=== PATIENT | male | born 1960 | race Caucasian/White ===

== ENCOUNTER 2017-05-07 11:31 | Observation (INO) | payer BC, OTHER ==
[~2017-05-07] VITALS: Ht 177.8 cm; Wt 85.0 kg
[2017-05-07] VITALS (7 sets, daily range): BP systolic 119–178; BP diastolic 70–95; PULSE 70–96; RESP 16–18; TEMP 98.4–99; O2SAT 97–99
[2017-05-07] MEDS ORDERED: DIPHTH/TETANUS/ACEL PERTUSSIS (BOOSTER) 0.5 ML VIAL/PFS IM ONE (11:45)
[2017-05-07] MEDS ORDERED: SODIUM CHLORIDE 0.9% FLUSH 10 ML FLUSH IV FLUSH PRN ×2 (11:45→19:00)
[2017-05-07] MEDS ORDERED: TRAM50TA PO (11:47)
[2017-05-07] MEDS ORDERED: IBUP800T23 PO (11:47)
[2017-05-07 12:13] LABS: AUTOMATED NEUTROPHIL # 9.4 TH/MM3 (1.8-7.7); BASOPHIL # 0.1 TH/MM3 (0-0.2); BASOPHIL % 0.6 % (0.0-2.0); EOSINOPHIL # 0.3 TH/MM3 (0-0.4); EOSINOPHIL % 2.4 % (0.0-4.0); HEMATOCRIT 41.9 % (39.0-51.0); HEMO FLAGS DIFF FINAL; LYMPHOCYTE # 1.3 TH/MM3 (1.0-4.8); MEAN CELL VOLUME 89.3 FL (80.0-100.0); MEAN CORPUSCULAR HGB CONC 33.6 % (32.0-36.0); MONO % 6.6 % (0.0-8.0); NEUT % 79.4 % (16.0-70.0); PLATELET COUNT 288 TH/MM3 (150-450); RED BLOOD COUNT 4.69 MIL/MM3 (4.50-5.90); RED CELL DISTRIBUTION WIDTH 14.1 % (11.6-17.2); WHITE BLOOD COUNT 11.8 TH/MM3 (4.0-11.0)
--- NOTE | 2017-05-07 12:14 | RADRPT ---
EXAM DATE/TIME: 05/07/2017 11:50 [place] COMPARISON: No previous studies available for comparison. INDICATIONS : Pain in right hand, second digit distal. Foreign body. Snake bite today. MEDICAL HISTORY : None. SURGICAL HISTORY : None. ENCOUNTER: Initial ACUITY: 1 day PAIN SCORE: 8/10 LOCATION: Right hand FINDINGS: Three view examination of the right hand demonstrates no soft tissue swelling, dislocation, or fractu re. The carpal bones appear intact. The interphalangeal and metacarpophalangeal joints are intact. Bony mineralization is normal. CONCLUSION: 1. No retained foreign body identified. Samy Dowling MD on May 07, 2017 at 12:11 Board Certified Radiologist. This report was verified electronically.
--- NOTE | 2017-05-07 12:19 | PD ---
HPI Chief Complaint: Bite or Sting Time Seen by Provider: 11:37 Travel History International Travel<30 days: No Contact w/Intl Traveler<30days: No Traveled to known affect area: No History of Present Illness HPI Patient is a 57-year-old male presents emergency department after an apparent snake bite to the right index finger. Patient states he was gardening and by time he saw the snake it was too late and it bit him. Theron and states he has seen pygme rattler snakes in his garden before and he is fairly certain this was one. He states it had a farzana head. He has never received antivenom before. Denies CP/Denies SOP/Denies bleeding from mouth, rectum or skin. Patient states that initially he squeezed the finger but did not suck or apply tourniquet. He does not take any anticoagulants. He states he takes Ultram for chronic back pain and occasional ibuprofen. PFSH Social History Alcohol Use: Yes (OCC) Tobacco Use: No Substance Use: No Allergies-Medications (Allergen,Severity, Reaction): Coded Allergies: azithromycin (Unverified Allergy, Severe, 05/07/17) erythromycin base (Unverified Allergy, Severe, 05/07/17) Reported Meds & Prescriptions Reported Meds & Active Scripts Active Reported Levothyroxine (Levothyroxine Sodium) 25 Mcg Tab 25 Mcg PO DAILY Ibuprofen 800 Mg Tab 800 Mg PO Q6HR PRN Tramadol (Tramadol HCl) 50 Mg Tab 100 Mg PO Q6H PRN Review of Systems Except as stated in HPI: all other systems reviewed are Neg Physical Exam Narrative GENERAL: Well-developed well-nourished no obvious distress. SKIN: There is a 1 cm x 0.5 cm hemorrhagic blister on the radial aspect of the right index finger at the DIP joint. There is also some mild swelling of this digit when compared to his other digit. There is some minimal surrounding erythema to approximately dime-sized. Some minimal range of motion limitation secondary to swelling. The patient reports minimal amount of pain at the site of the bite. There is a small puncture wound and only one puncture wound is seen. There is also some minimal swelling associated with an IV started in his left hand. He had an IV started in his right hand by EMS which was removed after additional IVs were obtained.. HEAD: Atraumatic. Normocephalic. EYES: Pupils equal and round. No scleral icterus. No injection or drainage. ENT: No nasal bleeding or discharge. Mucous membranes pink and moist. NECK: Trachea midline. No JVD. CARDIOVASCULAR: Regular rate and rhythm. No murmur appreciated. RESPIRATORY: No accessory muscle use. Clear to auscultation. Breath sounds equal bilaterally. GASTROINTESTINAL: Abdomen soft, non-tender, nondistended. Hepatic and splenic margins not palpable. MUSCULOSKELETAL: No obvious deformities. No clubbing. No cyanosis. No edema. NEUROLOGICAL: Awake and alert. Cranial nerves II through XII are grossly intact and nonfocal, 5 out of 5 strength in all 4 extremities. PSYCHIATRIC: Appropriate mood and affect; insight and judgment normal. Data Data Last Documented VS Vital Signs Date Time Temp Pulse Resp B/P (MAP) Pulse Ox O2 Delivery O2 Flow Rate FiO2 05/07/17 16:00 76 18 119/70 (86) 98 Room Air 05/07/17 11:32 98.4 Orders Orders Ecg Monitoring (05/07/17 11:42) Iv Access Insert/Monitor (05/07/17 11:42) Complete Blood Count With Diff (05/07/17 11:42) Basic Metabolic Panel (Bmp) (05/07/17 11:42) Prothrombin Time / Inr (Pt) (05/07/17 11:42) Act Partial Throm Time (Ptt) (05/07/17 11:42) Fibrinogen (05/07/17 11:42) Creatine Kinase (Cpk) (05/07/17 11:42) Type And Screen (05/07/17 11:42) [id number] (Booster) Inj (Boostrix (05/07/17 11:45) Sodium Chloride 0.9% Flush (Ns Flush) (05/07/17 11:45) Hepatic Functional Panel (05/07/17 11:44) Hand, Complete ([id number]) (05/07/17 ) Complete Blood Count With Diff (05/07/17 14:21) Comprehensive Metabolic Panel (05/07/17 14:21) Act Partial Throm Time (Ptt) (05/07/17 14:21) Prothrombin Time / Inr (Pt) (05/07/17 14:21) Fibrinogen (05/07/17 14:21) Tramadol (Ultram) (05/07/17 15:00) Complete Blood Count With Diff (05/07/17 17:21) Comprehensive Metabolic Panel (05/07/17 17:21) Act Partial Throm Time (Ptt) (05/07/17 17:21) Prothrombin Time / Inr (Pt) (05/07/17 17:21) Fibrinogen (05/07/17 17:21) Diet As Tolerated (05/07/17 18:27) Admit Order (Ed Use Only) (05/07/17 ) Labs Laboratory Tests Test 05/07/17 11:50 05/07/17 14:30 05/07/17 17:30 White Blood Count 11.8 TH/MM3 10.1 TH/MM3 10.4 TH/MM3 Red Blood Count 4.69 MIL/MM3 4.47 MIL/MM3 4.34 MIL/MM3 Hemoglobin 14.1 GM/DL 13.2 GM/DL 13.1 GM/DL Hematocrit 41.9 % 39.8 % 38.9 % Mean Corpuscular Volume 89.3 FL 89.2 FL 89.6 FL Mean Corpuscular Hemoglobin 30.0 PG 29.6 PG 30.1 PG Mean Corpuscular Hemoglobin Concent 33.6 % 33.2 % 33.6 % Red Cell Distribution Width 14.1 % 13.7 % 13.9 % Platelet Count 288 TH/MM3 291 TH/MM3 289 TH/MM3 Mean Platelet Volume 8.0 FL 8.0 FL 8.0 FL Neutrophils (%) (Auto) 79.4 % 79.7 % 79.2 % Lymphocytes (%) (Auto) 11.0 % 11.7 % 10.7 % Monocytes (%) (Auto) 6.6 % 5.6 % 6.7 % Eosinophils (%) (Auto) 2.4 % 2.0 % 2.7 % Basophils (%) (Auto) 0.6 % 1.0 % 0.7 % Neutrophils # (Auto) 9.4 TH/MM3 8.1 TH/MM3 8.2 TH/MM3 Lymphocytes # (Auto) 1.3 TH/MM3 1.2 TH/MM3 1.1 TH/MM3 Monocytes # (Auto) 0.8 TH/MM3 0.6 TH/MM3 0.7 TH/MM3 Eosinophils # (Auto) 0.3 TH/MM3 0.2 TH/MM3 0.3 TH/MM3 Basophils # (Auto) 0.1 TH/MM3 0.1 TH/MM3 0.1 TH/MM3 CBC Comment DIFF FINAL DIFF FINAL DIFF FINAL Differential Comment Prothrombin Time 10.6 SEC 10.8 SEC 10.9 SEC Prothromb Time International Ratio 1.0 RATIO 1.0 RATIO 1.0 RATIO Activated Partial Thromboplast Time 29.8 SEC 30.3 SEC 28.4 SEC Fibrinogen 551 mg/dL 500 mg/dL 531 mg/dL Blood Urea Nitrogen 11 MG/DL 11 MG/DL 11 MG/DL Creatinine 0.91 MG/DL 0.80 MG/DL 0.77 MG/DL Random Glucose 88 MG/DL 97 MG/DL 93 MG/DL Calcium Level 8.7 MG/DL 8.4 MG/DL 8.5 MG/DL Sodium Level 137 MEQ/L 137 MEQ/L 135 MEQ/L Potassium Level 3.9 MEQ/L 4.1 MEQ/L 4.0 MEQ/L Chloride Level 103 MEQ/L 104 MEQ/L 103 MEQ/L Carbon Dioxide Level 26.7 MEQ/L 26.3 MEQ/L 26.2 MEQ/L Anion Gap 7 MEQ/L 7 MEQ/L 6 MEQ/L Estimat Glomerular Filtration Rate 85 ML/MIN 99 ML/MIN 103 ML/MIN Total Bilirubin 0.5 MG/DL 0.5 MG/DL 0.5 MG/DL Direct Bilirubin 0.1 MG/DL Indirect Bilirubin 0.4 MG/DL Aspartate Amino Transf (AST/SGOT) 16 U/L 18 U/L 14 U/L Alanine Aminotransferase (ALT/SGPT) 18 U/L 14 U/L 14 U/L Alkaline Phosphatase 99 U/L 91 U/L 93 U/L Total Creatine Kinase 47 U/L Total Protein 8.0 GM/DL 7.3 GM/DL 7.4 GM/DL Albumin 3.3 GM/DL 3.1 GM/DL 3.0 GM/DL [facility] Medical Decision Making Medical Screen Exam Complete: Yes Emergency Medical Condition: Yes Differential Diagnosis Rattlesnake bite, dry bite, DIC, cellulitis, nonvenomous snake bite. Narrative Course Patient roomed in the emergency department, initially discussed with poison control, recommended serial measurements basic labs. When his labs resulted at 1320 was discussed again with poison control and discussed with Dr. Lopez who states that she is the toxicology fellow on. Discussed that the hand measurements have progressed as below. She recommends continued observation and repeat labs at 3 hours after the initial lab set. No antibiotic and has been recommended as of yet. Measurements were checked every 15-30 minutes as instructed by poison control, selected measurements are demonstrated below. Measurements (diameters): Middle Phalynx 7.5cm (12:15)-> 7.5cm (13:15)-> 8.0cm (14:15)-> 7.5cm (17 :15) Hand 22cm (12:15)-> 23cm (13:15)-> 22.5cm (14:15)-> 22.5cm (17:15) Wrist: 20cm (12:15)-> 20.5cm (13:15)-> 20cm (14:15)-> 20cm (17:15) Patient was discussed repeatedly with poison control and fellow on-call. At her final conversation at 1730 she had recommended that the patient has any swelling that he be admitted to the hospital for every 6 hours labs to assure the patient does not go into DIC. At this point my assessment is that the patient does still have some minimal swelling. The swelling has not progressed in the hemorrhagic blister has not progressed either. The recommendations were discussed with the patient and he is agreeable. Critical Care Narrative Aggregate critical care time was 65 minutes. Patient had frequent reassessments by me in the er to remeasure swelling. Multiple discussions with specialty provider at the poison control center. Time to perform other separately billable procedures was not included in the critical care time. My time did not include minutes spent treating any other patients simultaneously or on activities that did not directly contribute to the patient's treatment. The services I provided to this patient were to treat and/or prevent clinically significant deterioration that could result in: , disability, organ failure, amputation. I provided critical care services requiring my management, as noted below: Chart data review, documentation time, medication orders and management, vital sign assessments/reviewing monitor data, ordering and reviewing lab tests, ordering and interpreting/reviewing x-rays and diagnostic studies, care of the patient and discussion of the patient with the admitting physicians. Diagnosis Primary Impression: Snake bite Additional Impression: Venomous snake bite Admitting Information Admitting Physician Requests: Observation Condition: Stable Aayush Alvarado MD May 07, 2017 12:19
[2017-05-07 12:26] LABS: APTT (PATIENT) 29.8 SEC (24.3-30.1); PROTHROMBIN TIME - PATIENT 10.6 SEC (9.8-11.6)
[2017-05-07 12:34] LABS: BICARBONATE 26.7 MEQ/L (21.0-32.0); POTASSIUM 3.9 MEQ/L (3.5-5.1)
[2017-05-07 12:37] LABS: INDIRECT BILIRUBIN 0.4 MG/DL (0.0-0.8); TOTAL BILIRUBIN ADULT 0.5 MG/DL (0.2-1.0)
[2017-05-07 14:49] LABS: AUTOMATED NEUTROPHIL # 8.1 TH/MM3 (1.8-7.7); BASOPHIL # 0.1 TH/MM3 (0-0.2); EOSINOPHIL # 0.2 TH/MM3 (0-0.4); HEMATOCRIT 39.8 % (39.0-51.0); HEMO FLAGS DIFF FINAL; LYMPH % 11.7 % (9.0-44.0); LYMPHOCYTE # 1.2 TH/MM3 (1.0-4.8); MEAN CELL VOLUME 89.2 FL (80.0-100.0); MEAN CORPUSCULAR HEMOGLOBIN 29.6 PG (27.0-34.0); MEAN CORPUSCULAR HGB CONC 33.2 % (32.0-36.0); MONO % 5.6 % (0.0-8.0); NEUT % 79.7 % (16.0-70.0); PLATELET COUNT 291 TH/MM3 (150-450); RED BLOOD COUNT 4.47 MIL/MM3 (4.50-5.90); RED CELL DISTRIBUTION WIDTH 13.7 % (11.6-17.2); WHITE BLOOD COUNT 10.1 TH/MM3 (4.0-11.0)
[2017-05-07 14:58] LABS: ALT (GPT) 14 U/L (12-78); ANION GAP 7 MEQ/L (5-15); AST (GOT) 18 U/L (15-37); BICARBONATE 26.3 MEQ/L (21.0-32.0); BLOOD UREA NITROGEN 11 MG/DL (7-18); CHLORIDE 104 MEQ/L (98-107); GLOMERULAR FILTRATION RATE 99 ML/MIN (>89); POTASSIUM 4.1 MEQ/L (3.5-5.1); SODIUM (NA) 137 MEQ/L (136-145)
[2017-05-07 15:00] LABS: ALKALINE PHOSPHATASE 91 U/L (45-117); TOTAL BILIRUBIN ADULT 0.5 MG/DL (0.2-1.0)
[2017-05-07] MEDS ORDERED: traMADol HCL 50 MG TAB PO ONE (15:00)
[2017-05-07 15:19] LABS: APTT (PATIENT) 30.3 SEC (24.3-30.1); PROTHROMBIN TIME - PATIENT 10.8 SEC (9.8-11.6)
[2017-05-07 17:57] LABS: AUTOMATED NEUTROPHIL # 8.2 TH/MM3 (1.8-7.7); BASOPHIL # 0.1 TH/MM3 (0-0.2); BASOPHIL % 0.7 % (0.0-2.0); EOSINOPHIL # 0.3 TH/MM3 (0-0.4); EOSINOPHIL % 2.7 % (0.0-4.0); HEMATOCRIT 38.9 % (39.0-51.0); HEMO FLAGS DIFF FINAL; LYMPH % 10.7 % (9.0-44.0); LYMPHOCYTE # 1.1 TH/MM3 (1.0-4.8); MEAN CELL VOLUME 89.6 FL (80.0-100.0); MEAN CORPUSCULAR HEMOGLOBIN 30.1 PG (27.0-34.0); MEAN CORPUSCULAR HGB CONC 33.6 % (32.0-36.0); MONO % 6.7 % (0.0-8.0); NEUT % 79.2 % (16.0-70.0); PLATELET COUNT 289 TH/MM3 (150-450); RED BLOOD COUNT 4.34 MIL/MM3 (4.50-5.90); RED CELL DISTRIBUTION WIDTH 13.9 % (11.6-17.2); WHITE BLOOD COUNT 10.4 TH/MM3 (4.0-11.0)
[2017-05-07 18:13] LABS: ALT (GPT) 14 U/L (12-78); ANION GAP 6 MEQ/L (5-15); AST (GOT) 14 U/L (15-37); BICARBONATE 26.2 MEQ/L (21.0-32.0); BLOOD UREA NITROGEN 11 MG/DL (7-18); CHLORIDE 103 MEQ/L (98-107); GLOMERULAR FILTRATION RATE 103 ML/MIN (>89); SODIUM (NA) 135 MEQ/L (136-145)
[2017-05-07 18:15] LABS: ALKALINE PHOSPHATASE 93 U/L (45-117); TOTAL BILIRUBIN ADULT 0.5 MG/DL (0.2-1.0)
[2017-05-07 18:18] LABS: APTT (PATIENT) 28.4 SEC (24.3-30.1); PROTHROMBIN TIME - PATIENT 10.9 SEC (9.8-11.6)
[2017-05-07] MEDS ORDERED: MAGNESIUM HYDROXIDE SUSP 30 ML CUP PO PRN (19:00)
[2017-05-07] MEDS ORDERED: LACTULOSE SYRUP 20 GM/30 ML CUP PO PRN (19:00)
[2017-05-07] MEDS ORDERED: NALOXONE HCL 0.4 MG/ML AMP IV PUSH PRN (19:00)
[2017-05-07] MEDS ORDERED: BISACODYL 10 MG SUPP RECTAL PRN (19:00)
[2017-05-07] MEDS ORDERED: ONDANSETRON HCL 4 MG/2 ML VIAL IVP PRN (19:00)
[2017-05-07] MEDS ORDERED: SENNOSIDES 8.6 MG TAB PO PRN (19:00)
--- NOTE | 2017-05-07 19:16 | HHI.HP ---
[facility] Service Family Medicine Primary Care Physician Peace Serrano M.D. Admission Diagnosis Venomous Snake Bite. Diagnoses: International Travel<30 Days: No Contact w/Intl Traveler<30days: No Known Affected Area: No History of Present Illness Patient is a 57-year-old male with a h/o chronic back pain and hypothyroid who presented to the emergency department after an apparent snake bite to the right index finger. Patient reports that he was at his hunting camp, out there cleaning up. There was a tree down, and they wanted to collect the wood for [employer]. He reached out to chart picker branches and was bitten by a snake. There was one puncture wound. He squeezed it. He did not suck or apply a tourniquet. He went back and killed the snake with a shovel, but he did not bring the snake. He said it looked exactly like a pygmy rattlesnake that he saw online. He showed a picture from online and noted the farzana-shaped head and black spots on a alford body. He went to fire department 15-20 min away. They sent him via ambulance to here. He reports that the one necrotic spot is very TTP. There was some numbness and tingling in tip of his right index finger soon after the bite, which quickly resolved. Denies CP/Denies SOP/Denies bleeding from mouth, rectum or skin. He does not take any anticoagulants. He states he takes Ultram for chronic back pain and occasional ibuprofen. (Shayne Amin MD R2) Review of Systems Constitutional: DENIES: Diaphoretic episodes, Fever, Chills Endocrine: DENIES: Polydipsia, Polyuria, Polyphagia Eyes: DENIES: Blurred vision, Diplopia, Vision loss, Double Vision Ears, nose, mouth, throat: DENIES: Hearing loss, Throat pain, Running Nose Respiratory: DENIES: Cough, Shortness of breath Cardiovascular: DENIES: Chest pain, Palpitations, Syncope, Dyspnea on Exertion , Lower Extremity Edema Gastrointestinal: DENIES: Abdominal pain, Black stools, Bloody stools, Constipation, Diarrhea, Nausea, Vomiting Genitourinary: DENIES: Hematuria, Dysuria Musculoskeletal: COMPLAINS OF: Back pain, DENIES: Joint pain, Muscle aches, Neck pain Integumentary: DENIES: Pruritus, Rash Hematologic/lymphatic: DENIES: Bruising, Lymphadenopathy Neurologic: DENIES: Headache, Localized weakness, Paresthesias Psychiatric: DENIES: Confusion (Shayne Amin MD R2) Past Family Social History Past Medical History hypothyroid chronic back pain Past Surgical History denied Reported Medications Reported Meds & Active Scripts Active Reported Levothyroxine (Levothyroxine Sodium) 25 Mcg Tab 25 Mcg PO DAILY Ibuprofen 800 Mg Tab 800 Mg PO Q6HR PRN Tramadol (Tramadol HCl) 50 Mg Tab 100 Mg PO Q6H PRN (Shayne Amin MD R2) Allergies: Coded Allergies: azithromycin (Unverified Allergy, Severe, 05/07/17) erythromycin base (Unverified Allergy, Severe, 05/07/17) Active Ordered Medications Current Medications Medications (Trade) Dose Ordered Sig/Sadia Route Start Time Stop Time Status Last Admin (NS Flush) 2 ml UNSCH PRN IV FLUSH 05/07/17 11:45 (NS Flush) 2 ml UNSCH PRN IV FLUSH 05/07/17 19:00 (NS Flush) 2 ml BID IV FLUSH 05/07/17 21:00 (Tylenol) 650 mg Q4H PRN PO 05/07/17 19:00 (Zofran Inj) 4 mg Q6H PRN IVP 05/07/17 19:00 (Narcan Inj) 0.4 mg UNSCH PRN IV PUSH 05/07/17 19:00 (Leila-Colace) 1 tab BID PO 05/07/17 21:00 (Milk Of Magnesia Liq) 30 ml Q12H PRN PO 05/07/17 19:00 (Senokot) 17.2 mg Q12H PRN PO 05/07/17 19:00 (Dulcolax Supp) 10 mg DAILY PRN RECTAL 05/07/17 19:00 (Lactulose Liq) 30 ml DAILY PRN PO 05/07/17 19:00 (Motrin) 800 mg Q6H PRN PO 05/07/17 19:30 (Ultram) 100 mg Q6H PRN PO 05/07/17 19:30 Family History hypothyroidism in mother (takes low dose levothyroxine) and sister (takes high dose levothyroxine) Social History Patient lives with in house in [place], [place]. He quit smoking 2 years ago. He smoked 1ppd for 20 years. He drinks alcohol rarely. (Shayne Amin MD R2) Physical Exam Vital Signs Vital Signs Date Time Temp Pulse Resp B/P (MAP) Pulse Ox O2 Delivery O2 Flow Rate FiO2 05/07/17 16:00 76 18 119/70 (86) 98 Room Air 05/07/17 15:00 70 16 124/72 (89) 98 Room Air 05/07/17 14:00 80 16 123/71 (88) 97 Room Air 05/07/17 13:00 86 16 152/76 (101) 99 Room Air 05/07/17 11:32 98.4 96 16 178/95 (122) 98 Physical Exam GENERAL: Well-developed well-nourished no obvious distress. SKIN: There is a 0.75 cm x 0.5 cm dark blood blister on the radial aspect of the right index finger at the DIP joint. There is also some mild swelling of this digit when compared to his other digit. There is some minimal surrounding erythema to approximately 1-1.5 cm in diameter. Some minimal range of motion limitation secondary to swelling. The patient reports minimal amount of pain at the site of the bite but extreme tenderness to palpation. There is a small puncture wound; only one puncture wound is seen. There is also some minimal swelling associated with an IV started in his left hand. He had an IV started in his right hand by EMS which was removed after additional IVs were obtained.. HEAD: Atraumatic. Normocephalic. EYES: Pupils equal and round. No scleral icterus. No injection or drainage. ENT: No nasal bleeding or discharge. Mucous membranes pink and moist. NECK: Trachea midline. No JVD. CARDIOVASCULAR: Regular rate and rhythm. No murmur appreciated. RESPIRATORY: No accessory muscle use. Clear to auscultation. Breath sounds equal bilaterally. GASTROINTESTINAL: Abdomen soft, non-tender, nondistended. Hepatic and splenic margins not palpable. MUSCULOSKELETAL: No obvious deformities. No clubbing. No cyanosis. No edema. NEUROLOGICAL: Awake and alert. Cranial nerves II through XII are grossly intact and nonfocal, 5 out of 5 strength in all 4 extremities. PSYCHIATRIC: Appropriate mood and affect; insight and judgment normal. Measurements per ED physician note, but most recent measurements are from my exam: Measurements were checked every 15-30 minutes as instructed by poison control, selected measurements are demonstrated below. Measurements (diameters): Middle Phalynx 7.5cm (12:15)-> 7.5cm (13:15)-> 8.0cm (14:15)-> 7.5cm (17 :15) -> 7.5 (19:30) Right Index finger proximal phalanx: 8.5cm (19:30); Left Index finger proximal phalanx: 8.0 cm (19:30) Hand 22cm (12:15)-> 23cm (13:15)-> 22.5cm (14:15)-> 22.5cm (17:15) -> 22.5cm (19:30) Wrist: 20cm (12:15)-> 20.5cm (13:15)-> 20cm (14:15)-> 20cm (17:15) -> 20cm (19:30) Laboratory Laboratory Tests Test 05/07/17 11:50 05/07/17 14:30 05/07/17 17:30 White Blood Count 11.8 10.1 10.4 Red Blood Count 4.69 4.47 4.34 Hemoglobin 14.1 13.2 13.1 Hematocrit 41.9 39.8 38.9 Mean Corpuscular Volume 89.3 89.2 89.6 Mean Corpuscular Hemoglobin 30.0 29.6 30.1 Mean Corpuscular Hemoglobin Concent 33.6 33.2 33.6 Red Cell Distribution Width 14.1 13.7 13.9 Platelet Count 288 291 289 Mean Platelet Volume 8.0 8.0 8.0 Neutrophils (%) (Auto) 79.4 79.7 79.2 Lymphocytes (%) (Auto) 11.0 11.7 10.7 Monocytes (%) (Auto) 6.6 5.6 6.7 Eosinophils (%) (Auto) 2.4 2.0 2.7 Basophils (%) (Auto) 0.6 1.0 0.7 Neutrophils # (Auto) 9.4 8.1 8.2 Lymphocytes # (Auto) 1.3 1.2 1.1 Monocytes # (Auto) 0.8 0.6 0.7 Eosinophils # (Auto) 0.3 0.2 0.3 Basophils # (Auto) 0.1 0.1 0.1 CBC Comment DIFF FINAL DIFF FINAL DIFF FINAL Differential Comment Prothrombin Time 10.6 10.8 10.9 Prothromb Time International Ratio 1.0 1.0 1.0 Activated Partial Thromboplast Time 29.8 30.3 28.4 Fibrinogen 551 500 531 Blood Urea Nitrogen 11 11 11 Creatinine 0.91 0.80 0.77 Random Glucose 88 97 93 Calcium Level 8.7 8.4 8.5 Sodium Level 137 137 135 Potassium Level 3.9 4.1 4.0 Chloride Level 103 104 103 Carbon Dioxide Level 26.7 26.3 26.2 Anion Gap 7 7 6 Estimat Glomerular Filtration Rate 85 99 103 Total Bilirubin 0.5 0.5 0.5 Direct Bilirubin 0.1 Indirect Bilirubin 0.4 Aspartate Amino Transf (AST/SGOT) 16 18 14 Alanine Aminotransferase (ALT/SGPT) 18 14 14 Alkaline Phosphatase 99 91 93 Total Creatine Kinase 47 Total Protein 8.0 7.3 7.4 Albumin 3.3 3.1 3.0 (Shayne Amin MD R2) Result Diagram: 05/07/17 1730 05/07/17 1730 Imaging Last Impressions Hand X-Ray 05/07/17 0000 Signed Impressions: Service Date/Time: Sunday, May 07, 2017 11:50 - CONCLUSION: 1. No retained foreign body identified. Samy Dowling MD Course Patient roomed in the emergency department, ED physician initially discussed with poison control, recommended serial measurements and basic labs. ED doc discussed again with poison control and toxicology fellow. (Shayne Amin MD R2) Caprini VTE Risk Assessment Caprini VTE Risk Assessment: No/Low Risk (score <= 1) Caprini Risk Assessment Model Point Value = 1 Point Value = 2 Point Value = 3 Point Value = 5 Age 41-60 Minor surgery BMI > 25 kg/m2 Swollen legs Varicose veins or History of unexplained or recurrent spontaneous Oral contraceptives or hormone replacement Sepsis (< 1 month) Serious lung disease, including pneumonia (< 1 month) Abnormal pulmonary function Acute myocardial infarction Congestive heart failure (< 1 month) History of inflammatory bowel disease Medical patient at bed rest Age 61-74 Arthroscopic surgery Major open surgery (> 45 min) Laparoscopic surgery (> 45 min) Malignancy Confined to bed (> 72 hours) Immobilizing plaster cast Central venous access Age >= 75 History of VTE Family history of VTE Factor V Leiden Prothrombin [id number] Lupus anticoagulant Anticardiolipin antibodies Elevated serum homocysteine Heparin-induced thrombocytopenia Other congenital or acquired thrombophilia Stroke (< 1 month) Elective arthroplasty Hip, pelvis, or leg fracture Acute spinal cord injury (< 1 month) Prophylaxis Regimen Total Risk Factor Score Risk Level Prophylaxis Regimen 0-1 Low Early ambulation 2 Moderate Order ONE of the following: *Sequential Compression Device (SCD) *Heparin 5000 units SQ BID 3-4 Higher Order ONE of the following medications: *Heparin 5000 units SQ TID *Enoxaparin/Lovenox 40 mg SQ daily (WT < 150 kg, CrCl > 30 mL/min) *Enoxaparin/Lovenox 30 mg SQ daily (WT < 150 kg, CrCl > 10-29 mL/min) *Enoxaparin/Lovenox 30 mg SQ BID (WT < 150 kg, CrCl > 30 mL/min) AND/OR *Sequential Compression Device (SCD) 5 or more Highest Order ONE of the following medications: *Heparin 5000 units SQ TID (Preferred with Epidurals) *Enoxaparin/Lovenox 40 mg SQ daily (WT < 150 kg, CrCl > 30 mL/min) *Enoxaparin/Lovenox 30 mg SQ daily (WT < 150 kg, CrCl > 10-29 mL/min) *Enoxaparin/Lovenox 30 mg SQ BID (WT < 150 kg, CrCl > 30 mL/min) AND *Sequential Compression Device (SCD) (Shayne Amin MD R2) Assessment and Plan Assessment and Plan Patient is a 57-year-old male with a h/o chronic back pain and hypothyroid who presented to the emergency department after an apparent snake bite to the right index finger. Poison control was contacted and recommended serial lab exams and monitoring overnight. Code Status Full code Discussed Condition With d/w Dr. Alvarado, who spoke with Poison control (Shayne Amin MD R2) Attending Attestation THIS CASE WAS DISCUSSED WITH THE RESIDENT PHYSICIAN. I HAVE REVIEWED THE RECORD AND AGREE WITH THE ABOVE NOTE AND PLAN OF CARE WAS DISCUSSED. I HAVE AUTHORIZED THE ORDER FOR PLACEMENT IN OUT-PATIENT OBSERVATION STATUS. (Gamal Chavez MD) Problem List: (1) Snake bite ICD Codes: W59.11XA - Bitten by nonvenomous snake, initial encounter Status: Acute Plan: -Patient received Td booster in ED -BMP, CBC, coags, fibrinogen q6h -home medication of ibuprofen PRN for pain -monitor vitals (2) Hypothyroidism ICD Codes: E03.9 - Hypothyroidism, unspecified Plan: -continue patient's home medication (3) Chronic back pain ICD Codes: M54.9 - Dorsalgia, unspecified; G89.29 - Other chronic pain Plan: -continue patient's home medication of tramadol PRN for back pain (4) No contraindication to deep vein thrombosis (DVT) prophylaxis ICD Codes: Z78.9 - Other specified health status Plan: -SCD's BL (5) Nutrition, metabolism, and development symptoms ICD Codes: R63.8 - Other symptoms and signs concerning food and fluid intake Plan: Fluids: not indicated Electrolytes: monitor Nutrition: regular diet (Shayne Amin MD R2) Shayne Aimn MD R2 May 07, 2017 19:16 Gamal Chavez MD May 08, 2017 12:20
[2017-05-07] MEDS ORDERED: LEVO25TA4 PO (19:25)
[2017-05-07] MEDS ORDERED: IBUPROFEN 800 MG TAB PO PRN (19:30)
[2017-05-07] MEDS ORDERED: traMADol HCL 50 MG TAB PO PRN (19:30)
--- NOTE | 2017-05-07 19:44 | HHI.HP ---
[facility] Service Family Medicine Primary Care Physician Peace Serrano M.D. Admission Diagnosis Venomous Snake Bite. Diagnoses: International Travel<30 Days: No Contact w/Intl Traveler<30days: No Known Affected Area: No History of Present Illness Patient is a 57-year-old male presents emergency department after an apparent snake bite to the right index finger. Patient states he was gardening and by time he saw the snake it was too late and it bit him. Theron and states he has seen pygme rattler snakes in his garden before and he is fairly certain this was one. He states it had a farzana head. He has never received antivenom before. Denies CP/Denies SOP/Denies bleeding from mouth, rectum or skin. Patient states that initially he squeezed the finger but did not suck or apply tourniquet. He does not take any anticoagulants. He states he takes Ultram for chronic back pain and occasional ibuprofen. Past Family Social History Allergies: Coded Allergies: azithromycin (Unverified Allergy, Severe, 05/07/17) erythromycin base (Unverified Allergy, Severe, 05/07/17) Physical Exam Vital Signs Vital Signs Date Time Temp Pulse Resp B/P (MAP) Pulse Ox O2 Delivery O2 Flow Rate FiO2 05/07/17 16:00 76 18 119/70 (86) 98 Room Air 05/07/17 15:00 70 16 124/72 (89) 98 Room Air 05/07/17 14:00 80 16 123/71 (88) 97 Room Air 05/07/17 13:00 86 16 152/76 (101) 99 Room Air 05/07/17 11:32 98.4 96 16 178/95 (122) 98 Physical Exam GENERAL: Well-developed well-nourished no obvious distress. SKIN: There is a 1 cm x 0.5 cm hemorrhagic blister on the radial aspect of the right index finger at the DIP joint. There is also some mild swelling of this digit when compared to his other digit. There is some minimal surrounding erythema to approximately dime-sized. Some minimal range of motion limitation secondary to swelling. The patient reports minimal amount of pain at the site of the bite. There is a small puncture wound and only one puncture wound is seen. There is also some minimal swelling associated with an IV started in his left hand. He had an IV started in his right hand by EMS which was removed after additional IVs were obtained.. HEAD: Atraumatic. Normocephalic. EYES: Pupils equal and round. No scleral icterus. No injection or drainage. ENT: No nasal bleeding or discharge. Mucous membranes pink and moist. NECK: Trachea midline. No JVD. CARDIOVASCULAR: Regular rate and rhythm. No murmur appreciated. RESPIRATORY: No accessory muscle use. Clear to auscultation. Breath sounds equal bilaterally. GASTROINTESTINAL: Abdomen soft, non-tender, nondistended. Hepatic and splenic margins not palpable. MUSCULOSKELETAL: No obvious deformities. No clubbing. No cyanosis. No edema. NEUROLOGICAL: Awake and alert. Cranial nerves II through XII are grossly intact and nonfocal, 5 out of 5 strength in all 4 extremities. PSYCHIATRIC: Appropriate mood and affect; insight and judgment normal. Laboratory Laboratory Tests Test 05/07/17 11:50 05/07/17 14:30 05/07/17 17:30 White Blood Count 11.8 10.1 10.4 Red Blood Count 4.69 4.47 4.34 Hemoglobin 14.1 13.2 13.1 Hematocrit 41.9 39.8 38.9 Mean Corpuscular Volume 89.3 89.2 89.6 Mean Corpuscular Hemoglobin 30.0 29.6 30.1 Mean Corpuscular Hemoglobin Concent 33.6 33.2 33.6 Red Cell Distribution Width 14.1 13.7 13.9 Platelet Count 288 291 289 Mean Platelet Volume 8.0 8.0 8.0 Neutrophils (%) (Auto) 79.4 79.7 79.2 Lymphocytes (%) (Auto) 11.0 11.7 10.7 Monocytes (%) (Auto) 6.6 5.6 6.7 Eosinophils (%) (Auto) 2.4 2.0 2.7 Basophils (%) (Auto) 0.6 1.0 0.7 Neutrophils # (Auto) 9.4 8.1 8.2 Lymphocytes # (Auto) 1.3 1.2 1.1 Monocytes # (Auto) 0.8 0.6 0.7 Eosinophils # (Auto) 0.3 0.2 0.3 Basophils # (Auto) 0.1 0.1 0.1 CBC Comment DIFF FINAL DIFF FINAL DIFF FINAL Differential Comment Prothrombin Time 10.6 10.8 10.9 Prothromb Time International Ratio 1.0 1.0 1.0 Activated Partial Thromboplast Time 29.8 30.3 28.4 Fibrinogen 551 500 531 Blood Urea Nitrogen 11 11 11 Creatinine 0.91 0.80 0.77 Random Glucose 88 97 93 Calcium Level 8.7 8.4 8.5 Sodium Level 137 137 135 Potassium Level 3.9 4.1 4.0 Chloride Level 103 104 103 Carbon Dioxide Level 26.7 26.3 26.2 Anion Gap 7 7 6 Estimat Glomerular Filtration Rate 85 99 103 Total Bilirubin 0.5 0.5 0.5 Direct Bilirubin 0.1 Indirect Bilirubin 0.4 Aspartate Amino Transf (AST/SGOT) 16 18 14 Alanine Aminotransferase (ALT/SGPT) 18 14 14 Alkaline Phosphatase 99 91 93 Total Creatine Kinase 47 Total Protein 8.0 7.3 7.4 Albumin 3.3 3.1 3.0 Result Diagram: 05/07/17 1730 05/07/17 1730 Imaging Last Impressions Hand X-Ray 05/07/17 0000 Signed Impressions: Service Date/Time: Sunday, May 07, 2017 11:50 - CONCLUSION: 1. No retained foreign body identified. Samy Dowling MD Caprini VTE Risk Assessment Caprini Risk Assessment Model Point Value = 1 Point Value = 2 Point Value = 3 Point Value = 5 Age 41-60 Minor surgery BMI > 25 kg/m2 Swollen legs Varicose veins or History of unexplained or recurrent spontaneous Oral contraceptives or hormone replacement Sepsis (< 1 month) Serious lung disease, including pneumonia (< 1 month) Abnormal pulmonary function Acute myocardial infarction Congestive heart failure (< 1 month) History of inflammatory bowel disease Medical patient at bed rest Age 61-74 Arthroscopic surgery Major open surgery (> 45 min) Laparoscopic surgery (> 45 min) Malignancy Confined to bed (> 72 hours) Immobilizing plaster cast Central venous access Age >= 75 History of VTE Family history of VTE Factor V Leiden Prothrombin [id number] Lupus anticoagulant Anticardiolipin antibodies Elevated serum homocysteine Heparin-induced thrombocytopenia Other congenital or acquired thrombophilia Stroke (< 1 month) Elective arthroplasty Hip, pelvis, or leg fracture Acute spinal cord injury (< 1 month) Prophylaxis Regimen Total Risk Factor Score Risk Level Prophylaxis Regimen 0-1 Low Early ambulation 2 Moderate Order ONE of the following: *Sequential Compression Device (SCD) *Heparin 5000 units SQ BID 3-4 Higher Order ONE of the following medications: *Heparin 5000 units SQ TID *Enoxaparin/Lovenox 40 mg SQ daily (WT < 150 kg, CrCl > 30 mL/min) *Enoxaparin/Lovenox 30 mg SQ daily (WT < 150 kg, CrCl > 10-29 mL/min) *Enoxaparin/Lovenox 30 mg SQ BID (WT < 150 kg, CrCl > 30 mL/min) AND/OR *Sequential Compression Device (SCD) 5 or more Highest Order ONE of the following medications: *Heparin 5000 units SQ TID (Preferred with Epidurals) *Enoxaparin/Lovenox 40 mg SQ daily (WT < 150 kg, CrCl > 30 mL/min) *Enoxaparin/Lovenox 30 mg SQ daily (WT < 150 kg, CrCl > 10-29 mL/min) *Enoxaparin/Lovenox 30 mg SQ BID (WT < 150 kg, CrCl > 30 mL/min) AND *Sequential Compression Device (SCD) Shayne Amin MD R2 May 07, 2017 19:44
[2017-05-07] MEDS: DOCUSATE SODIUM 50 MG/SENNA 8.6 MG TAB PO SCH (21:00)
[2017-05-07] MEDS: SODIUM CHLORIDE 0.9% FLUSH 10 ML FLUSH IV FLUSH SCH (21:24)
[2017-05-08] VITALS: BP 128/75; PULSE 88; RESP 18; TEMP 99; O2SAT 97
[2017-05-08 00:18] LABS: MEAN CELL VOLUME 88.8 FL (80.0-100.0); MEAN CORPUSCULAR HEMOGLOBIN 29.4 PG (27.0-34.0); MEAN CORPUSCULAR HGB CONC 33.1 % (32.0-36.0); PLATELET COUNT 285 TH/MM3 (150-450); RED BLOOD COUNT 4.51 MIL/MM3 (4.50-5.90); RED CELL DISTRIBUTION WIDTH 13.9 % (11.6-17.2); REVIEW FLAG FINAL; WHITE BLOOD COUNT 11.8 TH/MM3 (4.0-11.0)
[2017-05-08 00:36] LABS: APTT (PATIENT) 30.3 SEC (24.3-30.1); BICARBONATE 23.8 MEQ/L (21.0-32.0); PROTHROMBIN TIME - PATIENT 11.1 SEC (9.8-11.6)
[2017-05-08] MEDS: ACETAMINOPHEN 325 MG TAB PO PRN (02:00)
[2017-05-08 04:00] VITALS: BP 128/68; PULSE 67; RESP 18; TEMP 98.1; O2SAT 97
[2017-05-08 07:06] LABS: HEMATOCRIT 40.5 % (39.0-51.0); MEAN CELL VOLUME 88.1 FL (80.0-100.0); MEAN CORPUSCULAR HEMOGLOBIN 29.7 PG (27.0-34.0); MEAN CORPUSCULAR HGB CONC 33.7 % (32.0-36.0); PLATELET COUNT 284 TH/MM3 (150-450); RED CELL DISTRIBUTION WIDTH 14.4 % (11.6-17.2); REVIEW FLAG FINAL; WHITE BLOOD COUNT 10.6 TH/MM3 (4.0-11.0)
[2017-05-08 07:35] LABS: BICARBONATE 25.7 MEQ/L (21.0-32.0); POTASSIUM 3.8 MEQ/L (3.5-5.1)
[2017-05-08 08:17] VITALS: BP 132/74; PULSE 83; RESP 16; TEMP 98.6; O2SAT 98
[2017-05-08] MEDS: DOCUSATE SODIUM 50 MG/SENNA 8.6 MG TAB PO SCH (10:55)
[2017-05-08] MEDS: SODIUM CHLORIDE 0.9% FLUSH 10 ML FLUSH IV FLUSH SCH (10:56)
--- NOTE | 2017-05-08 12:04 | HHI.DCPOC ---
Discharge Care Plan Diagnosis: (1) Venomous snake bite Goals to Promote Your Health * To prevent worsening of your condition and complications * To maintain your health at the optimal level Directions to Meet Your Goals Take your medications as prescribed Follow your dietary instruction Follow activity as directed Keep your appointments as scheduled Take your immunizations and boosters as scheduled If your symptoms worsen call your PCP, if no PCP go to Urgent Care Center or Emergency Room Smoking is Dangerous to Your Health. Avoid second hand smoke Call the 24-hour hour crisis hotline for domestic abuse at Katlyn Bates MD R2 May 08, 2017 12:04
--- NOTE | 2017-05-08 12:19 | HHI.HP ---
[facility] Service Family Medicine Primary Care Physician Peace Serrano M.D. Admission Diagnosis Venomous Snake Bite. Diagnoses: (1) Snake bite (2) Hypothyroidism (3) Chronic back pain (4) No contraindication to deep vein thrombosis (DVT) prophylaxis (5) Nutrition, metabolism, and development symptoms International Travel<30 Days: No Contact w/Intl Traveler<30days: No Known Affected Area: No History of Present Illness No acute events overnight and patient feels relatively well this morning. He feels that the swelling on his right index finger has improved and he is now able to bend the finger with less pain. He denies any fevers or chills, denies any nausea or vomiting, denies any palpitations or chest pain, denies any shortness of breath, denies any swelling, denies any petechiae or bleeding. In summary, this is a 57-year-old male with a h/o chronic back pain and hypothyroid who presented to the emergency department after an apparent snake bite to the right index finger. Patient reports that [place] , out there cleaning up. There was a tree down, and they wanted to collect the wood for firewood. He reached out to leaf size picker branches and was bitten by a snake. There was one puncture wound. He squeezed it. He did not suck or apply a tourniquet. He went back and killed the snake with a shovel, but he did not bring the snake. He said it looked exactly like a pygmy rattlesnake that he saw online. He showed a picture from online and noted the farzana-shaped head and black spots on a alford body. He went to fire department 15-20 min away. They sent him via ambulance to here. He reports that the one necrotic spot is very TTP. There was some numbness and tingling in tip of his right index finger soon after the bite, which quickly resolved. Past Family Social History Past Medical History hypothyroid chronic back pain Past Surgical History denied Allergies: Coded Allergies: azithromycin (Unverified Allergy, Severe, 05/07/17) erythromycin base (Unverified Allergy, Severe, 05/07/17) Family History hypothyroidism in mother (takes low dose levothyroxine) and sister (takes high dose levothyroxine) Social History Patient lives with in house in [place], [place]. He quit smoking 2 years ago. He smoked 1ppd for 20 years. He drinks alcohol rarely. Physical Exam Vital Signs Vital Signs Date Time Temp Pulse Resp B/P (MAP) Pulse Ox O2 Delivery O2 Flow Rate FiO2 05/08/17 08:17 98.6 83 16 132/74 (93) 98 05/08/17 04:00 98.1 67 18 128/68 (88) 97 05/08/17 00:00 99.0 88 18 128/75 (92) 97 05/07/17 21:24 99.0 80 18 146/72 (96) 99 05/07/17 20:32 05/07/17 19:00 84 16 136/73 (94) 97 Room Air 05/07/17 16:00 76 18 119/70 (86) 98 Room Air 05/07/17 15:00 70 16 124/72 (89) 98 Room Air 05/07/17 14:00 80 16 123/71 (88) 97 Room Air 05/07/17 13:00 86 16 152/76 (101) 99 Room Air Physical Exam GENERAL: Well-developed well-nourished no obvious distress. SKIN: 0.75 cm 0.5 cm blister on the radial aspect of the right index finger that is filled with blood. The area of demarcation from admission from the blister remains intact with no extension of erythema or swelling around the area of demarcation. ENT: No nasal bleeding or discharge. Mucous membranes pink and moist. CARDIOVASCULAR: Regular rate and rhythm. No murmur appreciated. RESPIRATORY: No accessory muscle use. Clear to auscultation. Breath sounds equal bilaterally. GASTROINTESTINAL: Abdomen soft, non-tender, nondistended. Hepatic and splenic margins not palpable. MUSCULOSKELETAL: No obvious deformities. No clubbing. No cyanosis. No edema. NEUROLOGICAL: Awake and alert. Laboratory Laboratory Tests Test 05/07/17 14:30 05/07/17 17:30 05/07/17 23:40 05/08/17 06:17 White Blood Count 10.1 10.4 11.8 10.6 Red Blood Count 4.47 4.34 4.51 4.60 Hemoglobin 13.2 13.1 13.2 13.6 Hematocrit 39.8 38.9 40.0 40.5 Mean Corpuscular Volume 89.2 89.6 88.8 88.1 Mean Corpuscular Hemoglobin 29.6 30.1 29.4 29.7 Mean Corpuscular Hemoglobin Concent 33.2 33.6 33.1 33.7 Red Cell Distribution Width 13.7 13.9 13.9 14.4 Platelet Count 291 289 285 284 Mean Platelet Volume 8.0 8.0 7.7 7.8 Neutrophils (%) (Auto) 79.7 79.2 Lymphocytes (%) (Auto) 11.7 10.7 Monocytes (%) (Auto) 5.6 6.7 Eosinophils (%) (Auto) 2.0 2.7 Basophils (%) (Auto) 1.0 0.7 Neutrophils # (Auto) 8.1 8.2 Lymphocytes # (Auto) 1.2 1.1 Monocytes # (Auto) 0.6 0.7 Eosinophils # (Auto) 0.2 0.3 Basophils # (Auto) 0.1 0.1 CBC Comment DIFF FINAL DIFF FINAL Differential Comment Prothrombin Time 10.8 10.9 11.1 11.0 Prothromb Time International Ratio 1.0 1.0 1.0 1.0 Activated Partial Thromboplast Time 30.3 28.4 30.3 30.0 Fibrinogen 500 531 448 507 Blood Urea Nitrogen 11 11 11 11 Creatinine 0.80 0.77 0.72 0.79 Random Glucose 97 93 88 86 Total Protein 7.3 7.4 Albumin 3.1 3.0 Calcium Level 8.4 8.5 8.6 8.8 Alkaline Phosphatase 91 93 Aspartate Amino Transf (AST/SGOT) 18 14 Alanine Aminotransferase (ALT/SGPT) 14 14 Total Bilirubin 0.5 0.5 Sodium Level 137 135 135 136 Potassium Level 4.1 4.0 4.0 3.8 Chloride Level 104 103 102 103 Carbon Dioxide Level 26.3 26.2 23.8 25.7 Anion Gap 7 6 9 7 Estimat Glomerular Filtration Rate 99 103 112 100 Result Diagram: 05/08/1761605/08/17616 Imaging Last Impressions Hand X-Ray 05/07/17 0000 Signed Impressions: Service Date/Time: Sunday, May 07, 2017 11:50 - CONCLUSION: 1. No retained foreign body identified. MD Abbe Terry VTE Risk Assessment Abbe VTE Risk Assessment: No/Low Risk (score <= 1) Caprini Risk Assessment Model Point Value = 1 Point Value = 2 Point Value = 3 Point Value = 5 Age 41-60 Minor surgery BMI > 25 kg/m2 Swollen legs Varicose veins or History of unexplained or recurrent spontaneous Oral contraceptives or hormone replacement Sepsis (< 1 month) Serious lung disease, including pneumonia (< 1 month) Abnormal pulmonary function Acute myocardial infarction Congestive heart failure (< 1 month) History of inflammatory bowel disease Medical patient at bed rest Age 61-74 Arthroscopic surgery Major open surgery (> 45 min) Laparoscopic surgery (> 45 min) Malignancy Confined to bed (> 72 hours) Immobilizing plaster cast Central venous access Age >= 75 History of VTE Family history of VTE Factor V Leiden Prothrombin [id number] Lupus anticoagulant Anticardiolipin antibodies Elevated serum homocysteine Heparin-induced thrombocytopenia Other congenital or acquired thrombophilia Stroke (< 1 month) Elective arthroplasty Hip, pelvis, or leg fracture Acute spinal cord injury (< 1 month) Prophylaxis Regimen Total Risk Factor Score Risk Level Prophylaxis Regimen 0-1 Low Early ambulation 2 Moderate Order ONE of the following: *Sequential Compression Device (SCD) *Heparin 5000 units SQ BID 3-4 Higher Order ONE of the following medications: *Heparin 5000 units SQ TID *Enoxaparin/Lovenox 40 mg SQ daily (WT < 150 kg, CrCl > 30 mL/min) *Enoxaparin/Lovenox 30 mg SQ daily (WT < 150 kg, CrCl > 10-29 mL/min) *Enoxaparin/Lovenox 30 mg SQ BID (WT < 150 kg, CrCl > 30 mL/min) AND/OR *Sequential Compression Device (SCD) 5 or more Highest Order ONE of the following medications: *Heparin 5000 units SQ TID (Preferred with Epidurals) *Enoxaparin/Lovenox 40 mg SQ daily (WT < 150 kg, CrCl > 30 mL/min) *Enoxaparin/Lovenox 30 mg SQ daily (WT < 150 kg, CrCl > 10-29 mL/min) *Enoxaparin/Lovenox 30 mg SQ BID (WT < 150 kg, CrCl > 30 mL/min) AND *Sequential Compression Device (SCD) Assessment and Plan Assessment and Plan Patient is a 57-year-old male with a h/o chronic back pain and hypothyroid who presented to the emergency department after an apparent snake bite to the right index finger. Poison control was contacted and recommended serial lab exams and monitoring overnight. Problem List: (1) Snake bite ICD Codes: W59.11XA - Bitten by nonvenomous snake, initial encounter Status: Acute Plan: Possible envenomation from a pygmy rattlesnake - Several discussions with poison control/toxicology fellow last night with resident physician and emergency room doctor guided management overnight. Serial measurements of the index finger and hand and wrist were performed with no extension or expansion of area of induration or swelling. Patient feels much better this morning and would like to go home We will call poison control to discuss case with them and recommendations on any further management or follow-up - Patient received Td booster in ED - Electrolytes, renal function, blood counts, and coags all remained within normal limits (2) Hypothyroidism ICD Codes: E03.9 - Hypothyroidism, unspecified Plan: -continue patient's home medication (3) Chronic back pain ICD Codes: M54.9 - Dorsalgia, unspecified; G89.29 - Other chronic pain Plan: -continue patient's home medication of tramadol PRN for back pain (4) No contraindication to deep vein thrombosis (DVT) prophylaxis ICD Codes: Z78.9 - Other specified health status Plan: -SCD's BL (5) Nutrition, metabolism, and development symptoms ICD Codes: R63.8 - Other symptoms and signs concerning food and fluid intake Plan: Fluids: not indicated Electrolytes: monitor Nutrition: regular diet Gamal Chavez MD May 08, 2017 12:19
[2017-05-08 12:22] VITALS: BP 127/80; PULSE 85; RESP 16; TEMP 98.1; O2SAT 99
[2017-05-08 13:13] LABS: HEMATOCRIT 42.5 % (39.0-51.0); MEAN CELL VOLUME 89.1 FL (80.0-100.0); MEAN CORPUSCULAR HEMOGLOBIN 29.3 PG (27.0-34.0); MEAN CORPUSCULAR HGB CONC 32.9 % (32.0-36.0); PLATELET COUNT 328 TH/MM3 (150-450); RED BLOOD COUNT 4.77 MIL/MM3 (4.50-5.90); REVIEW FLAG FINAL
[2017-05-08 13:26] LABS: PROTHROMBIN TIME - PATIENT 11.1 SEC (9.8-11.6)
[2017-05-08 13:40] LABS: BICARBONATE 26.4 MEQ/L (21.0-32.0); POTASSIUM 4.6 MEQ/L (3.5-5.1)
[2017-05-09] MEDS ORDERED: LEVOTHYROXINE SODIUM 25 MCG TAB PO SCH (06:00)
== END 2017-05-08 14:49 | disposition home or self-care (01) ==
LOC: NEPC 11:31 → NEDA 18:45 → NEPFCDU 20:37
PROVIDERS: ADMIT Family Medicine; ATTEND Family Medicine
DX: T63.001A Toxic effect of unspecified snake venom, accidental (unintentional), initial encounter (principal); M54.9 Dorsalgia, unspecified; G89.29 Other chronic pain; E03.9 Hypothyroidism, unspecified; S61.250A Open bite of right index finger without damage to nail, initial encounter; Z87.891 Personal history of nicotine dependence
CPT/HCPCS: 73130; 80048; 80076; 82550; 85025; 85027; 85384; 85610; 85730; 86850; 86900; 86901; 90471; 90715; 99285; G0378; 80053